=== PATIENT | male | born 1990 | race Hispanic/Latino ===

== ENCOUNTER 2021-04-18 17:27 | Emergency (ER) | payer SELFPAY ==
[~2021-04-18] VITALS: Ht 167.6 cm; Wt 68.0 kg
[2021-04-18 18:30] LABS: HEMATOCRIT 43.4 % (39.0-50.0); HEMOGLOBIN 15.3 g/dl (14.0-18.0); IMMATURE GRANULOCYTES 0.1 % (0.0-5.0); MEAN CELL VOLUME 87.7 fL CALC (80.0-100.0); MEAN CORPUSCULAR HGB 30.9 pG CALC (26.0-32.0); MEAN CORPUSCULAR HGB CONC 35.3 g/dL CAL (32.0-36.0); NEUT# 5.62 thou/uL (1.82-7.42); RED BLOOD COUNT 4.95 mill/uL (4.70-6.10); RED CELL DISTRI WIDTH 11.3 % (11.5-15.5)
[2021-04-18 18:42] LABS: ALBUMIN 4.8 g/dL (3.2-5.0); ALKALINE PHOSPHATASE 97 u/l (38-126); AMYLASE 93 u/l (30-110); ANION GAP 14 (6-22 (CALC)); BILIRUBIN, TOTAL 0.6 mg/dL (0.0-1.4); BUN 14 mg/dL (9-20); BUN/CREATININE RATIO 16 (12-20 (CALC)); CARBON DIOXIDE 25 mmol/l (22-30); CHLORIDE 103 mmol/l (95-108); CREATININE 0.9 mg/dL (0.7-1.3); GFR > 60 ML/MIN (>=60 (CALC)); GFR FOR AFR.AMER. > 60 ML/MIN (>=60 (CALC)); LIPASE 77 u/l (23-300); POTASSIUM 3.7 mmol/l (3.5-5.1); SGOT/AST 33 u/l (17-59); SODIUM 138 mmol/l (137-146); TOTAL PROTEIN 8.5 g/dL (6.3-8.2)
[2021-04-18 18:54] LABS: MYOGLOBIN 21 ng/mL (0 - 121)
[2021-04-18 19:28] LABS: URINE BILIRUBIN - DIPSTICK NEGATIVE (NEGATIVE); URINE BLOOD DIPSTICK NEGATIVE (NEGATIVE); URINE COLOR YELLOW; URINE GLUCOSE - DIPSTICK NEGATIVE (NEGATIVE); URINE KETONE NEGATIVE (NEGATIVE); URINE LEUK ESTERASE NEGATIVE (NEGATIVE); URINE PROTEIN - DIPSTICK NEGATIVE (NEG-TRACE); URINE SPECIFIC GRAVITY <=1.005; URINE UROBILINOGEN - DIPSTICK 0.2 E.U./dL (0.2)
[2021-04-18 19:29] LABS: URINE NITRITE - DIPSTICK NEGATIVE (Negative)
[2021-04-18] MEDS ORDERED: MIRALAX17 GM PO ×2 (20:23→20:32)
[2021-04-18 20:35] VITALS: BP 105/63
== END 2021-04-18 20:35 | disposition home or self-care (01) | DRG 392 ==
LOC: ED 17:27
PROVIDERS: Emergency Medicine
DX: R10.13 Epigastric pain (principal)
CPT/HCPCS: Q9967

== ENCOUNTER 2024-05-13 11:19 | Emergency (ER) | payer OTHER ==
[~2024-05-13] VITALS: Ht 167.6 cm; Wt 58.0 kg
[2024-05-13] VITALS (9 sets, daily range): BP systolic 103–122; BP diastolic 53–78
[~2024-05-13 11:19] MED LIST: MIRALAX17 GM PO
[2024-05-13] MEDS ORDERED: KETOROLAC TROMETHAMINE 30 MG/ML SDV IV STA (12:24)
[2024-05-13] MEDS ORDERED: SODIUM CHLORIDE 0.9% 1,000 ML IV STA (12:24)
[2024-05-13] MEDS ORDERED: ONDANSETRON HCl 4 MG/2 ML SDV IV STA (12:24)
[2024-05-13 12:32] LABS: BASO% 0.4 % (0-3); EOS% 2.6 % (0-8); HEMATOCRIT 45.3 % (39.0-50.0); HEMOGLOBIN 15.8 g/dl (14.0-18.0); IMMATURE GRANULOCYTES 0.1 % (0.0-5.0); LYMPH% 20.5 % (15-41); MEAN CELL VOLUME 89.3 fL CALC (80.0-100.0); MEAN CORPUSCULAR HGB 31.2 pG CALC (26.0-32.0); MEAN CORPUSCULAR HGB CONC 34.9 g/dL CAL (32.0-36.0); MONO% 5.6 % (2-13); NEUT# 5.47 thou/uL (1.82-7.42); NEUT% 70.8 % (42-76); RED BLOOD COUNT 5.07 mill/uL (4.70-6.10); RED CELL DISTRI WIDTH 10.9 % (11.5-15.5); URINE BILIRUBIN - DIPSTICK Negative (NEGATIVE); URINE BLOOD DIPSTICK Negative (NEGATIVE); URINE GLUCOSE - DIPSTICK Negative (NEGATIVE); URINE KETONE Negative (NEGATIVE); URINE LEUK ESTERASE Negative (NEGATIVE); URINE NITRITE - DIPSTICK Negative (Negative); URINE PROTEIN - DIPSTICK Negative (NEG-TRACE); URINE UROBILINOGEN - DIPSTICK 0.2 E.U./dL (0.2)
[2024-05-13 12:35] LABS: URINE COLOR Yellow
[2024-05-13 12:38] LABS: ALBUMIN 4.9 g/dL (3.2-5.0); BILIRUBIN, TOTAL 0.6 mg/dL (0.2-1.3); CREATININE 0.7 mg/dL (0.7-1.3); POTASSIUM 4.3 mmol/l (3.5-5.1); TOTAL PROTEIN 8.2 g/dL (6.3-8.2)
[2024-05-13] MEDS ORDERED: Polyethylene Glycol 3350 17 GM/PKT PO ONE (15:30)
[2024-05-13] MEDS ORDERED: LACTULOSE 20 GM/30 ML UDC PO ONE (15:30)
[2024-05-13] MEDS ORDERED: MAGNESIUM HYDROXIDE 30 ML UDC PO ONE (15:35)
[2024-05-13] MEDS ORDERED: MIRALAX17 GM PO (15:36)
== END 2024-05-13 16:11 | disposition home or self-care (01) | DRG 392 ==
LOC: ED 11:19
PROVIDERS: Nurse Practitioner
DX: K59.00 Constipation, unspecified (principal); Z72.0 Tobacco use
CPT/HCPCS: J2405; Q9967